=== PATIENT | female | born 1990 | race Hispanic/Latino ===

== ENCOUNTER 2018-11-21 18:08 | Emergency (ER) | payer MEDICAID ==
[~2018-11-21] VITALS: Ht 154.9 cm; Wt 76.2 kg
[~2018-11-21 18:08] MED LIST: CEPHALEXIN500 MG PO; KEFLEX250 MG PO; MACROBID 100 M100 MG PO; MECLIZINE HCL12.5 MG PO; PRENATAL 19 CH1 EAC1 PO
--- OUTSIDE RECORDS SUMMARY | 2018-11-21 18:12 | XMS ---
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 Mickie has no Care Guidelines for this patient. Dashawn VISIT COUNT (12 MO.) [address] [facility] TOTAL 2 NOTE: Visits indicate total known visits. ED/C VISIT TRACKING (12 MO.) 11/21/2018 18:[address] [facility] [place] TYPE: Emergency COMPLAINT: - VOMITING 11/12/2018 20:34 [facility] TYPE: Emergency COMPLAINT: - ABDOMINAL PAIN DIAGNOSES: - Unspecified infection of urinary tract in , first trimester - Left lower quadrant pain INPATIENT VISIT TRACKING (12 MO.) No inpatient visits to display in this time frame [id number]
[2018-11-21] MEDS ORDERED: UNISOM25 MG PO (23:20)
[2018-11-21] MEDS ORDERED: VITAMIN B-625 MG PO (23:20)
[2018-11-21] MEDS ORDERED: PRENATA CHEWAB1 EACH PO (23:20)
[2018-11-21] MEDS ORDERED: MACROBID 100 M100 MG PO (23:20)
== END 2018-11-21 23:38 | disposition home or self-care (01) ==
LOC: ED 18:08
DX: O23.41 Unspecified infection of urinary tract in pregnancy, first trimester (principal); O21.9 Vomiting of pregnancy, unspecified; O99.89 Other specified diseases and conditions complicating pregnancy, childbirth and the puerperium; R73.09 Other abnormal glucose; Z3A.01 Less than 8 weeks gestation of pregnancy; Z79.899 Other long term (current) drug therapy
CPT/HCPCS: 80053; 81001; 83735; 85025; 96361; 96374; 99284-25; J2405; J7030

== ENCOUNTER 2018-12-12 17:51 | Emergency (ER) | payer OTHER ==
[~2018-12-12] VITALS: Ht 154.9 cm; Wt 76.2 kg
[~2018-12-12 17:51] MED LIST changes: +PRENATA CHEWAB1 EACH PO; +UNISOM25 MG PO; +VITAMIN B-625 MG PO
--- OUTSIDE RECORDS SUMMARY | 2018-12-12 17:54 | XMS ---
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 Mickie has no Care Guidelines for this patient. Dashawn VISIT COUNT (12 MO.) [address] [facility] TOTAL 3 NOTE: Visits indicate total known visits. 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
[2018-12-12] MEDS ORDERED: REGLAN10 MG PO (18:05)
[2018-12-12] MEDS ORDERED: PROMETHAZINE HC25 M1 PO (18:05)
== END 2018-12-12 21:40 | disposition home or self-care (01) ==
LOC: ED 17:51
DX: O21.9 Vomiting of pregnancy, unspecified (principal); Z3A.11 11 weeks gestation of pregnancy; Z79.899 Other long term (current) drug therapy
CPT/HCPCS: 80053; 83735; 85025; 96361; 96374; 96375; 96376; 99284-25; J2405; J2550; J7030

== ENCOUNTER 2018-12-15 20:11 | Emergency (ER) | payer OTHER ==
[~2018-12-15] VITALS: Ht 154.9 cm; Wt 71.7 kg
[~2018-12-15 20:11] MED LIST changes: +PROMETHAZINE HC25 M1 PO; +REGLAN10 MG PO
--- OUTSIDE RECORDS SUMMARY | 2018-12-15 20:14 | XMS ---
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 Dashawn VISIT COUNT (12 MO.) 4 [facility] TOTAL 4 NOTE: Visits indicate total known visits. 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 TYPE: Emergency COMPLAINT: - ABDOMINAL PAIN DIAGNOSES: - Unsp infct of urinary tract in , first trimester - Left lower quadrant pain INPATIENT VISIT TRACKING (12 MO.) No inpatient visits to display in this time frame [id number]
== END 2018-12-15 23:05 | disposition home or self-care (01) ==
LOC: ED 20:11
DX: O20.9 Hemorrhage in early pregnancy, unspecified (principal); Z3A.11 11 weeks gestation of pregnancy
CPT/HCPCS: 76801; 86900; 86901; 99284-25

== ENCOUNTER 2019-04-28 11:01 | Emergency (ER) | payer OTHER ==
[~2019-04-28] VITALS: Ht 154.9 cm; Wt 83.6 kg
[2019-04-28] MEDS ORDERED: MONISTAT 745 GM VAGINAL (11:52)
== END 2019-04-28 12:18 | disposition home or self-care (01) ==
LOC: ED 11:01
DX: O98.313 Other infections with a predominantly sexual mode of transmission complicating pregnancy, third trimester (principal); A56.02 Chlamydial vulvovaginitis; Z3A.30 30 weeks gestation of pregnancy; O24.419 Gestational diabetes mellitus in pregnancy, unspecified control
CPT/HCPCS: 99283

== ENCOUNTER 2019-05-06 21:14 | Emergency (ER) | payer OTHER ==
[~2019-05-06] VITALS: Ht 154.9 cm; Wt 83.5 kg
[~2019-05-06 21:14] MED LIST changes: +MONISTAT 745 GM VAGINAL
--- OUTSIDE RECORDS SUMMARY | 2019-05-06 21:16 | XMS ---
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 Care History Medical/Surgical 12/17/2018 [facility] - PATIENT HAS OBGYN DR MYERS- NEXT APT FOR FOLLOW UP TO ED IS ON 12/19/18. Dashawn VISIT COUNT (12 MO.) 6 [facility] TOTAL 6 NOTE: Visits indicate total known visits. ED/UCC VISIT TRACKING (12 MO.) 05/06/2019 21:15 [facility] TYPE: Emergency COMPLAINT: - DIZZINESS/HEADACHE 04/28/2019 11:02 [facility] TYPE: Emergency COMPLAINT: - URINE PROBLEM DIAGNOSES: - Oth infect w sexl mode of transmiss comp preg, third tri - 30 weeks gestation of - Chlamydial vulvovaginitis Chlamydia - Gestational diabetes mellitus in , uns control 12/15/2018 20:11 [facility] TYPE: Emergency COMPLAINT: - VAGINAL BLEEDING/ DIAGNOSES: - 11 weeks gestation of - Hemorrhage in early , unspecified 12/12/2018 17:52 [facility] TYPE: Emergency COMPLAINT: - VOMITING, APPX 11 WEEKS PG DIAGNOSES: - Vomiting of , unspecified - Other termination clerk (current) drug therapy - 11 weeks gestation of - Vomiting of , unspecified 11/21/2018 18:10 [facility] TYPE: Emergency COMPLAINT: - VOMITING DIAGNOSES: - Nausea with vomiting, unspecified - Other fpc (current) drug therapy - 1 Less than 8 weeks gestation of - Other abnormal glucose - Oth diseases and conditions compl preg/chldbrth - Unsp infct of urinary tract in , first trimester - Vomiting of , unspecified 11/12/2018 20:34 [facility] TYPE: Emergency COMPLAINT: - ABDOMINAL PAIN DIAGNOSES: - Unsp infct of urinary tract in , first trimester - Left lower quadrant pain INPATIENT VISIT TRACKING (12 MO.) No inpatient visits to display in this time frame [id number]
== END 2019-05-06 21:44 | disposition left against medical advice (07) ==
LOC: ED 21:14
DX: Z53.21 Procedure and treatment not carried out due to patient leaving prior to being seen by health care provider (principal)

== ENCOUNTER 2019-07-02 06:10 | Inpatient (IN) | payer OTHER ==
[~2019-07-02] VITALS: Ht 157.5 cm; Wt 85.0 kg
--- NOTE | 2019-07-02 11:11 | PR ---
[facility] [address] [place], [place] [address] Signed Progress Notes IP Datetime Report Generated by CPN: 07/02/2019 11:11 PROGRESS NOTES: [id number] Impression: Normal progression of labor; Reassuring heart rate Plan: Continue present management VITAL SIGNS: [id number] Vital Signs: Reviewed; Within Normal Limits EXAM: [id number] Dilatation: 5.0 Effacement: 70 Station: -2 Uterine Contractions: rare MEMBRANES: [id number] Comments: Pt seen and evaluted. Doing well. CTXs rare and not painful. Cervical change appreciated by RN at last check. Glucose levels within range. Will monitor closely. Consider augmentation w/ pitocin if CTXs do not become regular Fetus A: [id number] FHR Baseline: 120 Variability: Moderate 6-25bpm Accelerations: 15X15 Decelerations: None FHR Category: Category I Presentation: Vertex Comments on Fetus A: No evidence of metabolic acidosis Fetus B: [id number] Signing Physician: Miguel A Rodriguez DO Copies: ~ *Electronically Signed* 07/02/19 1111 MIGUEL A RODRIGUEZ DO PATIENT NAME: BENTON HERRING PROGRESS NOTE DATE OF : [birth year] PHYSICIAN: MIGUEL A RODRIGUEZ DO RPT #: [id number] REPORT IS CONFIDENTIAL AND NOT TO BE RELEASED WITHOUT AUTHORIZATION
--- NOTE | 2019-07-02 13:30 | PR ---
[facility] [address] [facility] [place], [place] [address] Signed Progress Notes IP Datetime Report Generated by CPN: 07/02/2019 13:29 PROGRESS NOTES: [id number] Impression: Normal progression of labor Plan: Continue present management; Anesthesia consult VITAL SIGNS: [id number] Vital Signs: Reviewed; Within Normal Limits EXAM: [id number] Dilatation: 6.0 Effacement: 80 Station: -2 Uterine Contractions: rare MEMBRANES: [id number] Comments: Pt seen and evaluated. Very uncomfortable w/ ctxs and requesting epidural. Anesthesia on L_D to evaluate for epidural placement. Normal glucose levels. Reviewed anticipated course of labor Fetus A: [id number] FHR Baseline: 125 Variability: Moderate 6-25bpm Accelerations: None Decelerations: None FHR Category: Category I Presentation: Vertex Comments on Fetus A: No evidence of metabolic acidosis Fetus B: [id number] Signing Physician: Miguel A Rodriguez DO Copies: ~ *Electronically Signed* 07/02/19 7103 MIGUEL A RODRIGUEZ DO PATIENT NAME: BENTON HERRING PROGRESS NOTE DATE OF : [birth year] PHYSICIAN: MIGUEL A RODRIGUEZ DO RPT #: [id number] REPORT IS CONFIDENTIAL AND NOT TO BE RELEASED WITHOUT AUTHORIZATION
--- NOTE | 2019-07-02 16:56 | PR ---
[facility] [address] [facility] [place], [place] [address] Signed Progress Notes IP Datetime Report Generated by CPN: 07/02/2019 16:55 PROGRESS NOTES: [id number] Impression: Normal progression of labor Procedures: Sterile Vag Exam Plan: Anticipate Vaginal Delivery Informed Consent Obtain: Vaginal Delivery VITAL SIGNS: [id number] Vital Signs: Reviewed; Within Normal Limits EXAM: [id number] Dilatation: 10.0 Effacement: 100 Station: 0 Uterine Contractions: q 4-5 MEMBRANES: [id number] Comments: Pt seen and examined. Doing well. Very comfortable w/ epidural. Complete and will start pushing. Anticipate soon Fetus A: [id number] FHR Baseline: 130 Variability: Moderate 6-25bpm Accelerations: 15X15 Decelerations: None FHR Category: Category I Presentation: Vertex Comments on Fetus A: No evidence of metabolic acidosis Fetus B: [id number] Signing Physician: Miguel A Rodriguez DO Copies: ~ *Electronically Signed* 07/02/19 7543 MIGUEL A RODRIGUEZ DO PATIENT NAME: BENTON HERRING PROGRESS NOTE DATE OF : [birth year] PHYSICIAN: MIGUEL A RODRIGUEZ DO RPT #: [id number] REPORT IS CONFIDENTIAL AND NOT TO BE RELEASED WITHOUT AUTHORIZATION
--- NOTE | 2019-07-02 19:25 | PR ---
[facility] [address] [facility] [facility] [place], [place] [address] Signed PP Progress Notes Datetime Report Generated by CPN: 07/02/2019 19:25 SUBJECTIVE: [id number] Pain: Abnormal Pain Comments: Chest pain Bowel Movement: Yes Vital Signs: [id number] Vital Signs: Reviewed Notable Details: mild tachycardia, elevated BPs EXAM: [id number] Cardiovascular: Normal Respiratory: Normal Abdomen/Uterus: Normal Lochia: Normal Vulva/Perineum: Normal Breasts: Not Done CVA Tenderness: Not Done Extremities: Normal Incision: Not Applicable Progress: Not Applicable Exam Comments: Fundus firm U=0. Bleeding scant. Heart without murmur rubs or clicks. Lungs clear to ascultation bilaterally IMPRESSION/PLAN/PROCEDURES: [id number] Progress Notes: EKG ordered and reviewed. No gross abnormalities noted and will be read by Hospitalist. Coag panel / CBC ordered stat. Will monitor closely. Signing Physician: Miguel A Rodriguez DO Copies: ~ *Electronically Signed* 07/02/19 192 MIGUEL A RODRIGUEZ DO PATIENT NAME: BENTON HERRING PROGRESS NOTE DATE OF : [birth year] PHYSICIAN: MIGUEL A RODRIGUEZ DO RPT #: [id number] REPORT IS CONFIDENTIAL AND NOT TO BE RELEASED WITHOUT AUTHORIZATION
--- NOTE | 2019-07-02 19:26 | EKG ---
[facility] [address] [facility] [place], [place] [address] Signed Normal sinus rhythm with sinus arrhythmia Normal ECG No previous ECGs available Confirmed by SPRING DOWLING MD ([id number]) on 07/02/2019 7:26:06 PM Electronically Signed By: SPRING DOWLING MD 07/02/19 192 PATIENT NAME: ANABELABENTON HACKETT Electrocardiogram DATE OF : 89 PHYSICIAN: SPRING DOWLING MD REPORT #: [id number] REPORT IS CONFIDENTIAL AND NOT TO BE RELEASED WITHOUT AUTHORIZATION
--- NOTE | 2019-07-02 19:33 | PR ---
[facility] [address] [facility] [place], [place] [address] Signed PP Progress Notes Datetime Report Generated by CPN: 07/02/2019 19:33 SUBJECTIVE: [id number] Pain: Within normal limits Pain Comments: Chest pain Nausea/Vomiting: Denies Bowel Movement: Yes Vital Signs: [id number] Vital Signs: Reviewed Notable Details: mild tachycardia, elevated BPs EXAM: [id number] Cardiovascular: Normal Respiratory: Normal Abdomen/Uterus: Normal Lochia: Normal Vulva/Perineum: Normal Breasts: Not Done CVA Tenderness: Not Done Extremities: Normal Incision: Not Applicable Progress: Not Applicable Exam Comments: Fundus firm and bleeding continues to be normal IMPRESSION/PLAN/PROCEDURES: [id number] Progress Notes: Pt seen and evaluated. Doing better. Denies shortness of breath and chest pain. Reports most bothersome symptoms are dry throat. Denies sensation of throat closing or swelling. EKG was reviewed by internal medicine and verbally reported normal. Signing Physician: Miguel A Rodriguez DO Copies: ~ *Electronically Signed* 07/02/191932 MIGUEL A RODRIGUEZ DO PATIENT NAME: BENTON HERRING PROGRESS NOTE DATE OF : 91 PHYSICIAN: MIGUEL A RODRIGUEZ DO RPT #: [id number] REPORT IS CONFIDENTIAL AND NOT TO BE RELEASED WITHOUT AUTHORIZATION
--- NOTE | 2019-07-02 19:58 | PR ---
[facility] [address] [place], [place] [address] Signed PP Progress Notes Datetime Report Generated by CPN: 07/02/2019 19:58 SUBJECTIVE: [id number] Pain: Within normal limits Pain Comments: Chest pain Nausea/Vomiting: Present Bowel Movement: Yes BM Comments: +diarrhea Vital Signs: [id number] Vital Signs: Reviewed Notable Details: tachycardia noted w/ nausea/vomiting EXAM: [id number] Cardiovascular: Normal Respiratory: Normal Abdomen/Uterus: Normal Lochia: Normal Vulva/Perineum: Normal Breasts: Not Done CVA Tenderness: Normal Extremities: Normal Incision: Not Applicable Progress: Not Applicable Exam Comments: Fundus firm U=0. Bleeding scant. Pt w/ significant diarrhea, nausea, and vomiting like secondary to medications given for PPH IMPRESSION/PLAN/PROCEDURES: [id number] Progress Notes: Pt seen and examined. Denies chest pain, shortness of breath, and improved throat pain. C/O nausea, vomiting, and diarrhea. No lightheadedness/dizziness. Initial CBC returned that shows normal platelets and hemoconcentration. Fibrinogen and coags pending. Exam normal. Will treat N/V w IV zofran in addition to phenergan already administered. Will continue to monitor vitals closely. Signing Physician: Miguel A Rodriguez DO Copies: ~ *Electronically Signed* 07/02/191957 MIGUEL A RODRIGUEZ DO PATIENT NAME: BENTON HERRING PROGRESS NOTE DATE OF : 91 PHYSICIAN: MIGUEL A RODRIGUEZ DO RPT #: [id number] REPORT IS CONFIDENTIAL AND NOT TO BE RELEASED WITHOUT AUTHORIZATION
--- NOTE | 2019-07-03 07:22 | PR ---
[facility] [address] [place], [place] [address] Signed PP Progress Notes Datetime Report Generated by CPN: 07/03/2019 07:22 SUBJECTIVE: [id number] Pain: Within normal limits Pain Comments: Chest pain Nausea/Vomiting: Denies Flatus: Yes Bowel Movement: Yes BM Comments: +diarrhea Vital Signs: [id number] Vital Signs: Reviewed; Within Normal Limits Notable Details: Good urine output, no tachycardia EXAM: [id number] Cardiovascular: Normal Respiratory: Normal Abdomen/Uterus: Normal Lochia: Normal Vulva/Perineum: Not Done Breasts: Not Done CVA Tenderness: Normal Extremities: Normal Incision: Not Applicable Progress: Normal Exam Comments: Fundus firm U-1 nontender IMPRESSION/PLAN/PROCEDURES: [id number] Impression: Normal progression Plan: Continue present management Progress Notes: Pt seen and examined. Doing well. Ambulating and tolerating full diet. Pain and lochia minimal. Hernandez cath still in place. Bleeding scant. Excellent urine output and vital signs normal. well. Hgb 8.7 and pt denies lightheadeness or dizziness. All symptoms of chest pain throat pain have been resolved. No other questions or concerns. Anticipate d/c home tomorrow Signing Physician: Miguel A Rodriguez DO Copies: ~ *Electronically Signed* 07/03/19 0722 MIGUEL A RODRIGUEZ DO PATIENT NAME: BENTON HERRING PROGRESS NOTE DATE OF : 91 PHYSICIAN: MIGUEL A RODRIGUEZ DO RPT #: [id number] REPORT IS CONFIDENTIAL AND NOT TO BE RELEASED WITHOUT AUTHORIZATION
--- NOTE | 2019-07-04 11:00 | PR ---
[facility] [address] [place], [place] [address] Signed PP Progress Notes Datetime Report Generated by CPN: 07/04/2019 11:00 SUBJECTIVE: [id number] Pain: Within normal limits Pain Comments: Chest pain Nausea/Vomiting: Denies Flatus: Yes Bowel Movement: Yes BM Comments: +diarrhea Vital Signs: [id number] Vital Signs: Reviewed; Within Normal Limits Notable Details: Good urine output, no tachycardia EXAM: [id number] Cardiovascular: Normal Respiratory: Normal Abdomen/Uterus: Normal Lochia: Normal Vulva/Perineum: Not Done Breasts: Not Done CVA Tenderness: Normal Extremities: Normal Incision: Not Applicable Progress: Normal Exam Comments: Fundus firm U-2 nontender IMPRESSION/PLAN/PROCEDURES: [id number] Impression: Normal progression Plan: Discharge Progress Notes: Pt seen and examined. Doing well. Ambulating, voiding, and tolerating full diet. Pain and lochia minimal. well. No lightheadedness/dizziness and vital signs normal. No fevers/chills or other concerns. Discharge home. Reviewed discharge education in detail. Pt to f/u in 2 wks Signing Physician: Miguel A Myers DO Copies: ~ *Electronically Signed* 07/04/19 MIGUEL A JAIME DO PATIENT NAME: BENTON HERRING PROGRESS NOTE DATE OF : 91 PHYSICIAN: MIGUEL A MYERS DO RPT #: [id number] REPORT IS CONFIDENTIAL AND NOT TO BE RELEASED WITHOUT AUTHORIZATION
== END 2019-07-04 12:40 | disposition home or self-care (01) | DRG 806 ==
LOC: FBC 06:10
PROVIDERS: ADMIT Obstetrics & Gynecology
PROC: 10E0XZZ Delivery of Products of Conception, External Approach (ICD-10-PCS; principal; 2019-07-02)
PROC: 0KQM0ZZ Repair Perineum Muscle, Open Approach (ICD-10-PCS; 2019-07-02)
PROC: 10907ZC Drainage of Amniotic Fluid, Therapeutic from Products of Conception, Via Natural or Artificial Opening (ICD-10-PCS; 2019-07-02)
PROC: 00HU33Z Insertion of Infusion Device into Spinal Canal, Percutaneous Approach (ICD-10-PCS; 2019-07-02)
PROC: 3E0R3BZ Introduction of Anesthetic Agent into Spinal Canal, Percutaneous Approach (ICD-10-PCS; 2019-07-02)
DX: O24.424 Gestational diabetes mellitus in childbirth, insulin controlled (principal); O72.1 Other immediate postpartum hemorrhage; Z37.0 Single live birth; D62 Acute posthemorrhagic anemia; O70.1 Second degree perineal laceration during delivery; O90.81 Anemia of the puerperium; Z3A.39 39 weeks gestation of pregnancy
CPT/HCPCS: 01960; 36415; 85025; 85027; 85384; 85610; 85730; 93005; 93010; A9270; J1650; J2001; J2210; J2405; J2590; J2795; J7121

== ENCOUNTER 2019-07-07 19:28 | Emergency (ER) | payer OTHER ==
[~2019-07-07] VITALS: Ht 157.5 cm; Wt 80.3 kg
--- OUTSIDE RECORDS SUMMARY | 2019-07-07 19:32 | XMS ---
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 CRITERIA MET - Group Notification CARE PROVIDERS MIGUEL A MYERSpractor 12/13/2018-Current PHONE: [phone] Mickie has no Care Guidelines for this patient. Care History Medical/Surgical 12/17/2018 [facility] - PATIENT HAS OBGYN DR MYERS- NEXT APT FOR FOLLOW UP TO ED IS ON 12/19/18. E.D. VISIT COUNT (12 MO.) 7 [facility] TOTAL 7 NOTE: Visits indicate total known visits. ED/UCC VISIT TRACKING (12 MO.) 07/07/2019 19:29 [facility] TYPE: Emergency COMPLAINT: - HEADACHE/VOMITING 05/06/2019 21:15 [facility] TYPE: Emergency COMPLAINT: - DIZZINESS/HEADACHE, LEFT WITHOUT BEING SEEN DIAGNOSES: - Procedure and treatment not carried out due to patient leavin 04/28/2019 11:02 [facility] TYPE: Emergency COMPLAINT: - URINE PROBLEM DIAGNOSES: - Other infections with a predominantly sexual mode of transmis - 30 weeks gestation of - Chlamydial vulvovaginitis - Gestational diabetes mellitus in , unspecified contr 12/15/2018 20:11 [facility] TYPE: Emergency COMPLAINT: - VAGINAL BLEEDING/ DIAGNOSES: - 11 weeks gestation of - Hemorrhage in early , unspecified 12/12/2018 17:52 [facility] TYPE: Emergency COMPLAINT: - VOMITING, APPX 11 WEEKS PG DIAGNOSES: - Vomiting of , unspecified - Other manager terminal (current) drug therapy - 11 weeks gestation of - Vomiting of , unspecified 11/21/2018 18:10 [facility] TYPE: Emergency COMPLAINT: - VOMITING DIAGNOSES: - Nausea with vomiting, unspecified - Other manager terminal (current) drug therapy - Less than 8 weeks gestation of - Other abnormal glucose - Other specified diseases and conditions complicating pregnanc - Unspecified infection of urinary tract in , first tr - Vomiting of , unspecified 11/12/2018 20:34 [facility] TYPE: Emergency COMPLAINT: - ABDOMINAL PAIN DIAGNOSES: - Unspecified infection of urinary tract in , first tr - Left lower quadrant pain INPATIENT VISIT TRACKING (12 MO.) 07/02/2019 06:10 [facility] [place] TYPE: [facility] COMPLAINT: - INDUCTION DIAGNOSES: - Anemia of the puerperium - Other immediate hemorrhage - Second degree perineal laceration during delivery - Other immediate hemorrhage - Gestational diabetes mellitus in childbirth, insulin controll - Acute posthemorrhagic anemia - Second degree perineal laceration during delivery - Anemia of the puerperium - Gestational diabetes mellitus in childbirth, insulin controll - Single live - Gestational diabetes mellitus in , insulin controlle - 39 weeks gestation of - Acute posthemorrhagic anemia - 39 weeks gestation of - Single live [email or web address]
[2019-07-07] MEDS ORDERED: IMITREX100 MG PO (19:50)
== END 2019-07-07 21:45 | disposition home or self-care (01) ==
LOC: ED 19:28
DX: R51 Headache (principal)
CPT/HCPCS: 70450; 85025; 96361; 96374; 96375; 99284-25; J1200; J1885; J2405; J2765; J7030

== ENCOUNTER 2021-03-17 22:40 | Emergency (ER) | payer OTHER ==
[~2021-03-17] VITALS: Ht 157.5 cm; Wt 84.8 kg
[~2021-03-17 22:40] MED LIST changes: +IMITREX100 MG PO
--- OUTSIDE RECORDS SUMMARY | 2021-03-17 22:48 | XMS ---
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 Care History Medical/Surgical 07/15/2019 [facility] - PATIENT HAS A FOLLOW UP APT WITH DR MYERS-OBTRAICEN- 07/17/2019. 12/17/2018 [facility] - PATIENT HAS OBGYN DR MYERS- NEXT APT FOR FOLLOW UP TO ED IS ON 12/19/18. E.D. VISIT COUNT (12 MO.) 1 [facility]. TOTAL 1 NOTE: Visits indicate total known visits. ED/UCC VISIT TRACKING (12 MO.) 03/17/2021 22:[address] [facility] TYPE: Emergency COMPLAINT: - FLU SYMPTOMS INPATIENT VISIT TRACKING (12 MO.) No inpatient visits to display in this time frame [email or web address]
[2021-03-18] MEDS ORDERED: REGLAN10 MG PO (03:12)
== END 2021-03-18 03:19 | disposition home or self-care (01) ==
LOC: ED 22:40
DX: E86.0 Dehydration (principal); R11.2 Nausea with vomiting, unspecified; R51.9 Headache, unspecified
CPT/HCPCS: 80053; 81001; 83690; 83735; 85025; 96374; 96375; 96376; 99284-25; J2405; J2765; J7121

== ENCOUNTER 2021-07-23 07:02 | Inpatient (IN) | payer OTHER ==
[~2021-07-23] VITALS: Ht 160 cm; Wt 93.0 kg
--- NOTE | ~2021-07-23 | OR ---
[facility] [address] [place], [place] [address] Draft DATE OF OPERATION: 07/23/2021 SURGEON: Miguel A Rodriguez DO PREOPERATIVE DIAGNOSES: 1. IUP at 38 weeks and 5 days gestation. 2. Gestational diabetes with suboptimal control. 3. Polyhydramnios with RONALD of 30. 4. macrosomia. 5. History of shoulder dystocia. 6. History of hemorrhage. 7. Advanced cervical dilation. POSTOPERATIVE DIAGNOSES: 1. IUP at 38 weeks and 5 days gestation. 2. Gestational diabetes with suboptimal control. 3. Polyhydramnios with RONALD of 30. 4. macrosomia. 5. History of shoulder dystocia. 6. History of hemorrhage. 7. Advanced cervical dilation. PROCEDURE PERFORMED: Primary low transverse delivery. ANESTHESIA: Spinal. ASSEMBLY LOADER: Sindi Solano MD COMPLICATIONS: None. ESTIMATED BLOOD LOSS: 600 mL. DRAINS: Hernandez to gravity. PATIENT NAME: BENTON HERRING OPERATIVE REPORT DATE OF : [birth year] REPORT #: [id number] PHYSICIAN: MIGUEL A RODRIGUEZ DO PCP: MIGUEL A RODRIGUEZ DO REPORT IS CONFIDENTIAL AND NOT TO BE RELEASED WITHOUT AUTHORIZATION [facility] [address] [place] [id number] Draft FINDINGS: Delivery of viable female weighing 10 pounds 12 ounces in the NICKY position with Apgars of 8 and 9 and no nuchal cord. Prior to , the cervix was dilated 5.5 cm, 70% effaced -4 station and ballotable. Polyhydramnios with clear fluid. Normal placenta, umbilical cord, uterus, tubes, and ovaries. INDICATIONS: Ms. Dennys Chávez is a very pleasant 31-year-old G6, P4, female with intrauterine at 38 weeks 5 days gestation, who presented to the office for routine care. complicated by gestational diabetes with suboptimal control with insulin, history of prior shoulder dystocia, history of hemorrhage, polyhydramnios and suspected macrosomia. The patient did not bring glucose logs today and on cervical exam, cervix was noted to be advance dilated at 5.5 cm, -4 station with a head ballotable. Given history of shoulder dystocia and estimated weight suggestive of significant macrosomia, decision was made to recommend primary which the patient agrees. Given suboptimal control and advanced cervical dilation, decision was made to proceed with primary today. Case was reviewed with Dr. Solano who was in agreement. Risks, benefits, and alternatives discussed in detail with the patient. The patient understands and wished to proceed with the procedure. TECHNIQUE: The patient was taken to the operating room. A time-out was performed to confirm correct patient and the correct procedure. Spinal anesthesia was adequately established. The patient was prepped and draped in the supine position with a bump under the right hip. ICPs were on and running and no preoperative heparin was indicated. The patient received 3 g of Ancef IV as well as 1 g tranexamic acid for history of prior hemorrhage. Once spinal anesthetic was noted to be adequate, a Pfannenstiel skin incision was made and carried down to the fascia. The fascia was nicked in the midline and fascial incision was extended bilaterally using curved Burnham scissors. A small amount of oozing was noted on the right side, this was made hemostatic with the Bovie electrocautery. The underlying rectus was then dissected off bluntly and sharply and the rectus was divided in the midline and the peritoneum entered bluntly. Survey of the abdomen and pelvis demonstrated no intra-abdominal or pelvic adhesions. An Maynor self retractor was placed and lower uterine segment identified. Hysterotomy was then performed using a surgical scalpel. Very controlled rupture of the amnion was performed demonstrating a large amount of clear amniotic fluid. Once the vast majority amniotic fluid was drained through the hysterotomy, the hysterotomy was then extended bilaterally using blunt dissection. The surgeon's hand was placed in the uterine cavity. The head gently elevated into the abdomen and delivered with assistance of fundal pressure. No nuchal cord was identified and grossly macrosomic baby was noted. The baby was very gently delivered without difficulty and PATIENT NAME: BENTON HERRING OPERATIVE REPORT DATE OF : [birth year] REPORT #: [id number] PHYSICIAN: MIGUEL A RODRIGUEZ DO PCP: MIGUEL A RODRIGUEZ DO REPORT IS CONFIDENTIAL AND NOT TO BE RELEASED WITHOUT AUTHORIZATION [address] [address] Draft the was vigorous and cried. Cord was doubly clamped and cut and the handed to the waiting pediatric team for further care. Cord blood was obtained for routine analysis. The placenta was extracted intact with a centrally inserted three-vessel cord. Some initial brisk bleeding was noted from the right edge of the hysterotomy and this was made hemostatic with a mtqhtr-fy-madmt of 0 Monocryl. The uterus was then cleared of any remaining products of conception or clot. Hysterotomy was then repaired in two layers using 0 Monocryl, 1st being a running locked layer and the 2nd an imbricating layer in the vertical manner. Small amount of oozing was noted from the serosal edge and this was made hemostatic using Bovie electrocautery. The pelvis was irrigated and found to be hemostatic. Bilateral tubes and ovaries were noted to be normal and there were no gross abnormalities of the uterus. The Maynor self retractor was removed and the peritoneum was reapproximated using 2-0 Vicryl in a running nonlocked manner after ensuring hemostasis of the hysterotomy. The rectus muscle was examined and found to be hemostatic. It was loosely plicated in the midline using two interrupted sutures of 0 Vicryl. The rectus was irrigated and again found to be hemostatic. Fascia was reapproximated using 0 Vicryl in a running nonlocked manner. Subcu was irrigated and made hemostatic with judicious use of Bovie electrocautery. Subcu was reapproximated using 3-0 Vicryl in a running nonlocked manner. Skin was then reapproximated using surgical richard. The uterus was Crede'd for a scant amount of blood and the patient remained in the operating room for previously discussed TAP block. Sponge, needle, and instrument count was correct x2 at the end of the procedure. Dr. Solano was present and participated in all portions of the procedure. DO DINESH Guerrero/ALEXIS /[id number] Copies: ~ PATIENT NAME: BENTON HERRING OPERATIVE REPORT DATE OF : [birth year] REPORT #: [id number] PHYSICIAN: MIGUEL A RODRIGUEZ DO PCP: MIGUEL A RODRIGUEZ DO REPORT IS CONFIDENTIAL AND NOT TO BE RELEASED WITHOUT AUTHORIZATION
--- NOTE | 2021-07-23 10:05 | NUR ---
RT COLLECTED RAPID COVID 19, RSV, AND FLU SWAB PER DR REQUEST USING IN HOUSE LAB WITH NO COMPLICATIONS AT THIS TIME.
--- NOTE | 2021-07-24 08:58 | PR ---
[facility] [address] [facility] [place], [place] [address] Signed PP Progress Notes Datetime Report Generated by CPMando: 07/24/2021 08:58 SUBJECTIVE: [id number] Pain: Within Normal Limits Pain Comments: nausea resolved at this time Nausea/Vomiting: Denies Flatus: No Vital Signs: [id number] Vital Signs: Reviewed; Within Normal Limits Cardiovascular: Normal Respiratory: Normal Abdomen/Uterus: Abnormal Lochia: Normal Vulva/Perineum: Not Done Breasts: Not Done CVA Tenderness: Not Done Extremities: Normal Incision: Normal Progress: Normal Exam Comments: Abdomen with active BS. Fundus firm, NT @ U-1. H/H 8/24.2, WBC 9.7, 195k IMPRESSION/PLAN/PROCEDURES: [id number] Impression: Normal Progression Other Plans: ambulate, shower Procedures: None Progress Notes: Doing well. Will begin ambulation and shower and remove Hernandez if tolerating. She is anemic but no symptoms thus far. Signing Physician: Sindi Solano MD Copies: ~ *Electronically Signed* 07/24/21 0858 SINDI SOLANO MD PATIENT NAME: BENTON HERRING PROGRESS NOTE DATE OF : [birth year] PHYSICIAN: SINDI SOLANO MD RPT #: [id number] REPORT IS CONFIDENTIAL AND NOT TO BE RELEASED WITHOUT AUTHORIZATION
--- NOTE | 2021-07-25 08:52 | PR ---
[facility] [address] [facility] [place], [place] [address] Signed PP Progress Notes Datetime Report Generated by CPMando: 07/25/2021 08:51 SUBJECTIVE: [id number] Pain: Within Normal Limits Pain Comments: nausea resolved at this time Nausea/Vomiting: Denies Flatus: No Vital Signs: [id number] Vital Signs: Reviewed; Within Normal Limits Cardiovascular: Normal Respiratory: Normal Abdomen/Uterus: Abnormal Lochia: Normal Vulva/Perineum: Not Done Breasts: Not Done CVA Tenderness: Not Done Extremities: Normal Incision: Normal Progress: Normal Exam Comments: Abdomen with active BS. Fundus firm, NT @ U-1. IMPRESSION/PLAN/PROCEDURES: [id number] Impression: Normal Progression Plan: Remove [place]; Discharge Other Plans: ambulate, shower Procedures: None Progress Notes: Doing well at this time. She is tolerating ambulation. She is ready for D/C. Signing Physician: Sindi Solano MD Copies: ~ *Electronically Signed* 07/25/21 0851 SINDI SOLANO MD PATIENT NAME: BENTON HERRING PROGRESS NOTE DATE OF : [birth year] PHYSICIAN: SINDI SOLANO MD RPT #: [id number] REPORT IS CONFIDENTIAL AND NOT TO BE RELEASED WITHOUT AUTHORIZATION
== END 2021-07-25 12:35 | disposition home or self-care (01) | DRG 788 ==
LOC: FBC 08:45
PROVIDERS: ADMIT Obstetrics & Gynecology; ATTEND Obstetrics & Gynecology
PROC: 10D00Z1 Extraction of Products of Conception, Low, Open Approach (ICD-10-PCS; principal; 2021-07-23)
DX: O24.424 Gestational diabetes mellitus in childbirth, insulin controlled (principal); O40.3XX0 Polyhydramnios, third trimester, not applicable or unspecified; O36.63X0 Maternal care for excessive fetal growth, third trimester, not applicable or unspecified; O62.0 Primary inadequate contractions; Z37.0 Single live birth; Z3A.38 38 weeks gestation of pregnancy
CPT/HCPCS: 36415; 85027; 86850; 86900; 86901; 87502; A9270; C9803; J0690; J1100; J1650; J1885; J2001; J2274; J2405; J2590; J2795; J3010; J7040; J7121; U0003

== ENCOUNTER 2023-09-18 08:35 | Inpatient (IN) | payer OTHER ==
[~2023-09-18] VITALS: Ht 154.9 cm; Wt 90.7 kg
--- NOTE | ~2023-09-18 | OR ---
[place] [address] [place], [place] [address] Draft DATE OF OPERATION: 09/19/2023 SURGEON: Miguel A Rodriguez DO PREOPERATIVE DIAGNOSES: 1. Intrauterine at 37 weeks gestation. 2. History of prior section. 3. Gestational diabetes, poorly controlled with insulin. 4. Desires bilateral salpingectomy. POSTOPERATIVE DIAGNOSES: 1. Intrauterine at 37 weeks gestation. 2. History of prior section. 3. Gestational diabetes, poorly controlled with insulin. 4. Desires bilateral salpingectomy. PROCEDURES PERFORMED: 1. Repeat low transverse section. 2. Bilateral salpingectomy. TELEPHONE ORDER CLERK ROOM SERVICE: Sindi Solano MD ANESTHESIA: Spinal with postoperative TAP blocks. ESTIMATED BLOOD LOSS: 600 mL. COMPLICATIONS: None. DRAINS: Hernandez to gravity. SPECIMENS: Bilateral fallopian tubes. FINDINGS: Delivery of viable male in the ROP position with normal uterus, tubes, and PATIENT NAME: BENTON HERRING OPERATIVE REPORT DATE OF : [birth year] REPORT #: [id number] PHYSICIAN: MIGUEL A RODRIGUEZ (YOAN) PCP: NO PRIMARY CARE PHYSICIAN REPORT IS CONFIDENTIAL AND NOT TO BE RELEASED WITHOUT AUTHORIZATION [facility] [address] [place] [id number] Draft ovaries. Loose nuchal cord x1. Clear amniotic fluid. Apgars 9 and 9 and weight 8 pounds 3 ounces. ESTIMATED BLOOD LOSS: 600 mL. INDICATIONS: Ms. Dennys Chávez is a very pleasant 33-year-old female, G6, P4, who presents for repeat low transverse delivery with bilateral salpingectomy. Glucose was poorly controlled despite increasing insulin regimen. Glucose 121. Reviewed the procedure including risks, benefits, and alternatives. All questions were answered to the best of my ability and the patient's apparent satisfaction. Patient is asked to proceed with the procedure. TECHNIQUE: The patient was taken to the OR. A time-out was performed to confirm correct patient, correct procedure. Spinal anesthesia was adequately established. The patient was prepped and draped in the supine position with a bump under the right hip. A Hernandez catheter was inserted. The patient received Ancef 3 g preoperatively and no heparin was indicated. Once spinal anesthetic was noted to be adequate, a Pfannenstiel skin incision was made through prior scar and with a surgical scalpel, carried down to the fascia. Fascia was nicked in the midline and fascial incision was extended bilaterally using curved Burnham scissors. The fascia was grasped with the Kristie's, elevated, and the underlying rectus dissected off bluntly and sharply. The rectus was divided in the midline and the peritoneum was entered bluntly. Peritoneal incision was extended cephalad caudad using blunt and sharp dissection after evaluating and finding no adhesions. The lower uterine segment was identified and Maynor self retractor was placed. The lower uterine segment was significantly thin and this intraoperative finding was relayed to the patient. Hysterotomy was then performed using a surgical scalpel and clear amniotic fluid was noted. The hysterotomy was extended bilaterally using blunt dissection. The surgeon's hand was placed in the uterine cavity and the head elevated into the maternal abdomen in the ROP position and delivered with the assistance of fundal pressure. The remainder of the delivered easily and the was vigorous and cried. Cord was doubly clamped and cut. The handed to the waiting pediatric team for further care. Cord blood was obtained for routine analysis. The placenta was expressed, intact with a centrally inserted three-vessel cord. Bleeding was minimal and Pitocin was administered per protocol. Hysterotomy was closed using 0 Monocryl in two layers, the first being a running locked layer and the second being a running imbricating layer in the vertical manner. A small amount of oozing was noted at the serosal edge of the right side of the incision. This was made hemostatic with 0 Monocryl. The pelvis was irrigated and found to be hemostatic. Attention was then turned to salpingectomy. The right fallopian tube was grasped with PATIENT NAME: BENTON HERRING OPERATIVE REPORT DATE OF : [birth year] REPORT #: [id number] PHYSICIAN: MIGUEL A RODRIGUEZ (YOAN) DO PCP: NO PRIMARY CARE PHYSICIAN REPORT IS CONFIDENTIAL AND NOT TO BE RELEASED WITHOUT AUTHORIZATION [address] [address] Draft Archana's, elevated and dissected along the mesosalpinx with bipolar cautery with excellent hemostasis. The tube was amputated at the cornu. Again excellent hemostasis was appreciated. The process was repeated on the left side without complication. The uterus was returned to the abdomen and hemostasis was appreciated after one wysvpt-fw-ornke suture was placed in the hysterotomy and then in the midline. The peritoneum was then reapproximated using 2-0 Vicryl in a running nonlocked manner after removal of the Maynor self retractor. The rectus was examined and made hemostatic with judicious use of Bovie electrocautery. The rectus was plicated in the midline with three interrupted sutures of 0 Vicryl. Griffin was applied to the rectus sheath. The fascia was then reapproximated using 0 Vicryl in a running nonlocked manner. Subcu was irrigated, made hemostatic with judicious use of Bovie electrocautery. The subcu was reapproximated using 3-0 Vicryl in a running nonlocked manner. Skin was reapproximated with surgical richard. The uterus was Crede'd for scant amount of blood and the patient remained in the OR for postoperative TAP blocks per Anesthesia. Sponge, needle and instrument counts correct x2 at the end of the procedure. Dr. Sindi Solano, was present and participated in all portions of the procedure. DO DINESH Guerrero/RACHELL /[id number] Copies: ~ PATIENT NAME: BENTON HERRING OPERATIVE REPORT DATE OF : [birth year] REPORT #: [id number] PHYSICIAN: MIGUEL A RODRIGUEZ DO (JD) PCP: NO PRIMARY CARE PHYSICIAN REPORT IS CONFIDENTIAL AND NOT TO BE RELEASED WITHOUT AUTHORIZATION
[2023-09-18] MEDS ORDERED: LACTATED RINGER'S 2,000 ML IV PRN (15:30)
[2023-09-18] MEDS ORDERED: LACTATED RINGER'S 1,000 ML IV SCH (15:30)
[2023-09-19] MEDS ORDERED: LACTATED RINGER'S 1,000 ML IV PRN (05:15)
[2023-09-19 05:56] LABS: HEMOGLOBIN 11.4 g/dL (12.0-18.0); MCH 28.6 (27-36); MCHC 33.4 g/dl (30-36); MCV 85.7 fl (81-99); RBC 3.97 M/ul (4.3-5.7)
[2023-09-19 05:59] VITALS: BP 130/86
[2023-09-19 06:12] LABS: AMPHETAMINES, URINE NEGATIVE (NEGATIVE); BARBITURATES, URINE NEGATIVE (NEGATIVE); BENZODIAZEPINE, URINE NEGATIVE (NEGATIVE); BUPRENORPHINE, URINE NEGATIVE (NEGATIVE); CANNABINOID, URINE NEGATIVE (NEGATIVE); COCAINE, URINE NEGATIVE (NEGATIVE); ECSTASY, URINE NEGATIVE (NEGATIVE); FENTANYL, URINE NEGATIVE (NEGATIVE); METHADONE, URINE NEGATIVE (NEGATIVE); OPIATES, URINE NEGATIVE (NEGATIVE); OXYCODONE, URINE NEGATIVE (NEGATIVE); PHENCYCLIDINE, URINE NEGATIVE (NEGATIVE)
[2023-09-19 06:33] LABS: ABO O; ANTIBODY SCREEN NEGATIVE; RH POSITIVE
[2023-09-19] MEDS ORDERED: SOD+POT BICARB/CITRIC ACID 2 EA TABLET.EFF PO SCH (07:00)
[2023-09-19] MEDS ORDERED: CEFAZOLIN SODIUM 3 GM/30 ML SYR IV SCH (07:00)
[2023-09-19] MEDS ORDERED: DEXAMETHASONE SOD PHOS 4 MG/ML VIAL ONE ×2 (07:06→07:11)
[2023-09-19] MEDS ORDERED: dexmedeTOMIDine HCl 200 MCG/2 ML VIAL ONE (07:06)
[2023-09-19] MEDS ORDERED: ePHEDrine sulfate 50 MG/ML AMP ONE (07:06)
[2023-09-19] MEDS ORDERED: OXYTOCIN 10 UNITS/ML VIAL ONE (07:06)
[2023-09-19] MEDS ORDERED: SODIUM CHLORIDE 0.9% 60 ML IV ONE (07:06)
[2023-09-19] MEDS ORDERED: PHENYLEPHRINE HCL 10 MG/ML VIAL ONE (07:06)
[2023-09-19] MEDS ORDERED: ondansetron HCL 4 MG/2 ML VIAL ONE (07:06)
[2023-09-19] MEDS ORDERED: BUPIVACAINE 0.75% IN DEXTROSE 2 ML AMP ONE (07:08)
[2023-09-19] MEDS ORDERED: MORPHINE SULFATE 1 MG/ML VIAL ONE (07:09)
[2023-09-19] MEDS ORDERED: fentaNYL citrate 100 MCG/2 ML VIAL ONE (07:10)
[2023-09-19] MEDS ORDERED: LIDOCAINE HCL 2% 5 ML SDV ONE (07:10)
[2023-09-19] MEDS ORDERED: Ropivacaine HCl 0.5% 30 ML VIAL ONE (07:11)
[2023-09-19] MEDS ORDERED: LACTATED RINGER'S 1,000 ML IV ONE ×2 (07:35→08:01)
[2023-09-19] MEDS ORDERED: SODIUM CHLORIDE 0.9% 20 ML IV ONE (08:10)
[2023-09-19] MEDS ORDERED: LACTATED RINGER'S 1,000 ML IV SCH (08:39)
[2023-09-19] MEDS ORDERED: ondansetron HCL 4 MG/2 ML VIAL IV PRN ×2 (08:45→12:45)
[2023-09-19] MEDS ORDERED: METOCLOPRAMIDE HCL 10 MG/2 ML SDV IV PRN (08:45)
[2023-09-19] MEDS ORDERED: LIDOCAINE 2% VISCOUS 6 ML SYR TOP ONE (08:45)
[2023-09-19] MEDS ORDERED: PROMETHAZINE HCL 25 MG SUPP PR PRN (08:45)
[2023-09-19] MEDS ORDERED: OXYTOCIN/0.9 % SODIUM CHLORIDE 500 ML IV SCH (08:45)
[2023-09-19] MEDS ORDERED: OXYCODONE HCL 5 MG TAB PO PRN (08:45)
[2023-09-19] MEDS ORDERED: PROMETHAZINE HCL 25 MG TAB PO PRN (08:45)
[2023-09-19] MEDS ORDERED: bisacodyL 10 MG SUPP PR PRN (08:45)
[2023-09-19] MEDS ORDERED: PROCHLORPERAZINE EDISYLATE 10 MG/2 ML VIAL IV PRN (08:45)
[2023-09-19] MEDS ORDERED: SENNOSIDES/DOCUSATE 1 EA TAB PO SCH (09:00)
[2023-09-19 10:12] VITALS: BP 117/68
--- NOTE | 2023-09-19 10:29 | NUR ---
09/19/23 Emily PérezEmerson 0840-PT ARRIVED BACK TO [facility] ROOM 104 VIA BED. PT ON RA WITH SATS STABLE AT 92% OR GREATER. RR EVEN AND UNLABORED. PTS SIG OTHER AND MOTHER IN ROOM UPON ARRIVAL. LR WITH PIT INFUSING IN 18 G IV IN L HAND. NO S/SX INFILTRATION NOTED. PT DENIES PAIN OR NAUSEA WHEN ASKED. 0845-FUNDAL CHECK REVEALS FIRM, MIDLINE FUNDUS AND SMALL AMT OF RUBRA LOCHIA NOTED. SPINAL LEVEL AT INGUINAL. 0850-FUNDAL CHECK COMPLETED. NO CHANGE FROM INITAL ASSESSMENT. INCISION DRSG IS CDI. PT CONT TO DENY PAIN OR NAUSEA. SATS REMAIN STABLE ON RA. PT WITH BABY TO BREAST WITH [facility] RN ASSISTANCE. 0852-CBG CHECKED AND 133 RESULTED. 0855-JHAVERI TO GRAVITY AND DRAINING PALE, YELLOW URINE. RR EVEN AND UNLABORED. DENIES PAIN OR NAUSEA WHEN ASKED. FUNDAL CHECK MIDLINE, FIRM, AND WITH SMALL AMT OF RUBRA LOCHIA NOTED. 0900- [facility] RN'S AT PTS BEDSIDE TO ASSISTANCE WITH BREAST FEEDING. PT TAKING SMALL SIPS OF WATER. CONT TO DENY ANY PAIN OR NAUSEA. 0915-FUNDAL CHECK REVEALS FIRM, MIDLINE FUNDUS WITH SMALL AMT OF RUBRA LOCHIA. SA02 STABLE ON RA ABOVE 92%. IV SITE REMAINS PATENT WITH LR/W PIT CONT TO INFUSE W/O S/SXS INFILTRATION. SPINAL LEVEL REMAINS AT INGUINAL LEVEL. PT CONT TO DENY AND PAIN OR NAUSEA WHEN ASKED. BABY TO BREAST WITH [facility] RN ASSISTANCE. JHAVERI TO GRAVITY DRAINING PALE, YELLOW URINE. [facility] RN DECLINES TO HAVE JHAVERI EMPTIED, THEY WITH USE URINE FOR LAB TESING PER REPORT. PTS MOTHER AND SIG OTHER REMAIN IN ROOM WITH PT AT BEDSIDE. C-SEC SURGICAL DRSG REMAINS CDI. 0920-REPORT GIVEN TO C RN.
[2023-09-19] MEDS ORDERED: SIMETHICONE 125 MG TABLET CHEWABLE PO SCH (11:00)
[2023-09-19] MEDS ORDERED: MORPHINE SULFATE 4 MG/ML VIAL IV PRN (12:45)
[2023-09-19] MEDS ORDERED: diphenhydrAMINE HCL 50 MG/ML VIAL IV PRN (12:45)
[2023-09-19] MEDS ORDERED: HYDROmorphone HCL 1 MG/ML SYR IV PRN (12:45)
[2023-09-19] MEDS ORDERED: NALOXONE HCL 0.4 MG SYR IV PRN (12:45)
[2023-09-19] MEDS ORDERED: KETOROLAC TROMETHAMINE 30 MG/ML VIAL IV SCH (14:00)
[2023-09-19] MEDS ORDERED: ACETAMINOPHEN 500 MG TAB PO SCH (16:00)
[2023-09-19] MEDS ORDERED: ENOXAPARIN SODIUM 40 MG/0.4 ML SYR SUB-Q SCH (18:00)
[2023-09-20] MEDS ORDERED: LACTATED RINGER'S 1,000 ML IV SCH (05:00)
[2023-09-20 05:34] LABS: HEMATOCRIT 29.1 % (35.0-50.0); HEMOGLOBIN 9.8 g/dL (12.0-18.0); MCH 28.9 (27-36); MCHC 33.6 g/dl (30-36); MCV 86.2 fl (81-99); RBC 3.38 M/ul (4.3-5.7); RDW 13.9 (10.5-15.0)
[2023-09-20] MEDS ORDERED: IBUPROFEN 800 MG TAB PO SCH (06:00)
--- NOTE | 2023-09-20 08:05 | PR ---
[facility] [address] [facility] [place], [place] [address] Signed PP Progress Notes Datetime Report Generated by CPN: 09/20/2023 08:05 SUBJECTIVE: [id number] Pain: Within Normal Limits Nausea/Vomiting: Denies Flatus: Yes Bowel Movement: No Vital Signs: [id number] Vital Signs: Reviewed; Within Normal Limits Cardiovascular: Normal Respiratory: Normal Abdomen/Uterus: Normal Lochia: Normal Vulva/Perineum: Not Done Breasts: Not Done CVA Tenderness: Normal Extremities: Normal Incision: Normal Progress: Normal Exam Comments: Fundus firm U-2 nontender. Incision healing well IMPRESSION/PLAN/PROCEDURES: [id number] Impression: Normal Progression Plan: Continue Present Management Progress Notes: Pt seen and examined. Doing well. Ambulating and tolerating full diet. Pain and lochia minimal. Hernandez just removed. Breast and formula feeding. No fevers/chills or other concerns. Anticipate d/c home tomorrow. Reviewed AM Hgb 9.8 Signing Physician: Miguel A Rodriguez DO Copies: ~ *Electronically Signed* 09/20/23 0805 MIGUEL A RODRIGUEZ (YOAN) DO PATIENT NAME: BENTON HERRING PROGRESS NOTE DATE OF : 91 PHYSICIAN: MIGUEL A RODRIGUEZ (JD) DO RPT #: [id number] REPORT IS CONFIDENTIAL AND NOT TO BE RELEASED WITHOUT AUTHORIZATION
--- NOTE | 2023-09-21 07:41 | PR ---
[facility] [address] [place], [place] [address] Signed PP Progress Notes Datetime Report Generated by CPN: 09/21/2023 07:41 SUBJECTIVE: [id number] Pain: Within Normal Limits Nausea/Vomiting: Denies Flatus: Yes Bowel Movement: No Vital Signs: [id number] Vital Signs: Reviewed; Within Normal Limits EXAM: Ongoing Cardiovascular: Normal Respiratory: Normal Abdomen/Uterus: Normal Lochia: Normal Vulva/Perineum: Not Done Breasts: Not Done CVA Tenderness: Normal Extremities: Normal Incision: Normal Progress: Normal Exam Comments: Fundus firm U-2 nontender. Incision well healing w/ richard in place IMPRESSION/PLAN/PROCEDURES: [id number] Impression: Normal Progression Plan: Discharge Progress Notes: Pt seen and examined. Doing well. Ambulating, voiding, and tolerating full diet. Pain and lochia minimal. well. No concerns. Desires d/c home today. Reviewed d/c instructions. S/P bilateral salpingectomy for pp contraception. D/C home w/ return for staple removal in office in 2-3 days. All questions answered. Signing Physician: Miguel A Rodriguez DO Copies: ~ *Electronically Signed* 09/21/23 0741 MIGUEL A RODRIGUEZ (YOAN) DO PATIENT NAME: BENTON HERRING PROGRESS NOTE DATE OF : 91 PHYSICIAN: MIGUEL A RODRIGUEZ DO (JD) RPT #: [id number] REPORT IS CONFIDENTIAL AND NOT TO BE RELEASED WITHOUT AUTHORIZATION
--- NOTE | 2023-09-25 16:14 | PATH ---
[facility] [address] [place], [place] [address] Signed SPECIMEN(S): A FALLOPIAN TUBES, BILATERAL SPECIMEN SOURCE: A. 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 These findings, together with the gross examination, support the pathologic diagnosis. GROSS DESCRIPTION: The specimen, labeled and designated "Festus Kyler, bilateral tubes," is received in formalin and consists of 2 wynne-purple, fimbriated fallopian tubes (12.5 cm in length by 0.6 cm in diameter and 10.8 cm in length by 0.5 cm in diameter) resection reveal wynne-pink surfaces with a pinpoint lumen and multiple smooth-walled cysts (measuring up to 0.2 cm in greatest dimension) filled with translucent fluid. Judicial Reporter sections are submitted in A1-A4. Cassette Summary: (A1-A2) provider service representative cross-sections of first measured fallopian tube and entire bisected fimbria (A3-A4) provider service representative cross-sections of second measured fallopian tube and entire bisected fimbria KG (under the direct supervision of a pathologist) The Gross Description was prepared using a voice recognition system. The report was reviewed for accuracy; however, sound-alike word errors, addition and/or deletions may occur. If there is any question about this report, please contact Client Services. ADDITIONAL NOTES: Immunohistochemical and/or in situ hybridization studies if performed in this case included appropriate positive controls that reacted as expected. This PATIENT NAME: BENTON HERRING PATHOLOGY DATE OF : [birth year] REPORT #: [id number] PHYSICIAN: MOE PATHOLOGY PCP: NO PRIMARY CARE PHYSICIAN REPORT IS CONFIDENTIAL AND NOT TO BE RELEASED WITHOUT AUTHORIZATION [facility] [address] [facility] [place] [address] Signed test was developed and its performance characteristics determined by [facility]. It has not been cleared or approved by the U.S. Food and Drug Administration. The FDA has determined that such clearance or approval is not necessary. This test is used for clinical purposes. It should not be regarded as investigational or for research. [facility] is certified under the Clinical Laboratory Improvement Amendments of 1988 (CLIA) as qualified to perform high complexity clinical laboratory testing. PERFORMING LABORATORY: Technical component was performed by [facility], [address] [place] [id number] (CLIA# [id number]). Professional interpretation was performed by [facility] [address] [facility] [id number] Diagnostician: Jose Adams MD Pathologist Electronically Signed 09/25/2023 Copies: ~ PATIENT NAME: BENTON HERRING PATHOLOGY DATE OF : [birth year] REPORT #: [id number] PHYSICIAN: MOE GAMA PCP: NO PRIMARY CARE PHYSICIAN REPORT IS CONFIDENTIAL AND NOT TO BE RELEASED WITHOUT AUTHORIZATION
== END 2023-09-21 11:25 | disposition home or self-care (01) | DRG 785 ==
LOC: FBC 09-19 05:09
PROVIDERS: Obstetrics & Gynecology; ADMIT Obstetrics & Gynecology; ATTEND Obstetrics & Gynecology
PROC: 10D00Z1 Extraction of Products of Conception, Low, Open Approach (ICD-10-PCS; principal; 2023-09-19 07:30)
PROC: 0UB70ZZ Excision of Bilateral Fallopian Tubes, Open Approach (ICD-10-PCS; 2023-09-19 07:30)
DX: O34.211 Maternal care for low transverse scar from previous cesarean delivery (principal); O24.424 Gestational diabetes mellitus in childbirth, insulin controlled; Z3A.37 37 weeks gestation of pregnancy; Z37.0 Single live birth; Z30.2 Encounter for sterilization; O69.81X0 Labor and delivery complicated by cord around neck, without compression, not applicable or unspecified
CPT/HCPCS: 01961; 36415; 76942; 80307; 85027; 86850; 86900; 86901; 88302; A9270; J0690; J1100; J1650; J1885; J2001; J2274; J2371; J2405; J2590; J2795; J3010; J7121